=== PATIENT | male | born 1935 ===

== ENCOUNTER 2020-03-26 14:36 | Inpatient (IN) | payer MEDICARE, BC ==
--- NOTE | 2020-03-26 15:19 | PCM.HP.2 ---
H&P History of Present Illness - General Date of Service: 03/26/20 - History of Present Illness Initial Comments - Free Text/Narative: 84 yo male with pmh of COPD,BPH, atrial fibrillation s/p Pacemaker/ICD in 2011, on coumadin who presents with several week history of shortness of breath. Patient reports shortness of breath at rest. He reports increase lower leg swelling bilaterally. He reports laying down makes shortness of breath worse. He reports a 10 LB weight gain. Patient has been following with [facility] who has increased his HCTZ last week and then started lasix three days ago. PAtient reports worsening leg edema even though he was started on lasix. [facility] called and arranged for direct admission. His last echocardiogram was in 2018 which showed an LVEF of 65%. - Related Data Allergies/Adverse Reactions: Allergies Allergy/AdvReac Type Severity Reaction Status Date / Time Penicillins Allergy Rash Verified 03/26/20 15:00 Home Medications: Home Meds Albuterol Sulfate [Proair Respiclick] 2 puff INH Q4H PRN 03/26/20 [History] Budesonide/Formoterol Fumarate [Symbicort 80-4.5 MCG] 2 puff IH BID 03/26/20 [ History] Loratadine 10 mg PO DAILY 03/26/20 [History] Methyl Salicylate/Menth/Camph [Salonpas 3.1%-6.0%-10.0% Patch] 1 patch TOP DAILY PRN 03/26/20 [History] Omeprazole 20 mg PO DAILY 03/26/20 [History] Pravastatin [Pravachol] 40 mg PO DAILY 03/26/20 [History] Pregabalin [Lyrica] 150 mg PO BID 03/26/20 [History] Tamsulosin [Tamsulosin 24 Hr] 0.4 mg PO DAILY 03/26/20 [History] Warfarin [Coumadin] 4 mg PO ASDIRECTED 03/26/20 [History] hydroCHLOROthiazide [Hydrochlorothiazide] 50 mg PO DAILY 03/26/20 [History] oxyCODONE HCl/Acetaminophen [Oxycodone-Acetaminophen 5-325] 1 each PO Q4HR PRN 03/26/20 [History] H&P Review of Systems - Review of Systems: Review Of Systems: Comprehensive ROS is negative, except as noted in HPI. Exam - Exam Exam: See Below - Exam General: Alert, Oriented HEENT: Mucosa Moist & Mears Neck: Supple Lungs: Clear to Auscultation, Normal Respiratory Effort Cardiovascular: Regular Rate, Regular Rhythm GI/Abdominal Exam: Normal Bowel Sounds, Soft, Non-Tender Extremities: Non-Tender, No Pedal Edema Skin: Warm, Dry, Intact - Patient Data Result Diagrams: 03/27/20 05:45 03/27/20 05:45 Problem List Initiated/Reviewed/Updated: Yes Orders Last 24hrs: Active Orders 24 hr Category Date Time Status EKG Documentation Completion [RC] URGENT Care 03/26/20 14:56 Active Telemetry Monitoring [Cardiac Monitoring] [RC] . Care 03/26/20 14:56 Active DIRECTED CXR [Chest 2V] [CR] Stat Exams 03/26/20 14:56 Ordered Echo Comp wo Cont [US] Routine Exams 03/26/20 14:57 Ordered B-TYPE NATRIURETIC PEPTIDE,BNP [CHEM] Routine Lab 03/26/20 15:09 Received CBC WITH AUTO DIFF [HEME] Urgent Lab 03/26/20 15:09 Received COMPREHENSIVE METABOLIC PN,CMP [CHEM] Routine Lab 03/26/20 15:09 Received INR,PT,PROTHROMBIN TIME [COAG] Routine Lab 03/26/20 15:13 Ordered MAGNESIUM [CHEM] Routine Lab 03/26/20 15:09 Received Assessment/Plan Comment:: 84 yo male admitted for new onset CHF exacerbation. We will get CXR, echocardigoram, CMP, BNP and INR. CHF: will start IV lasix pending BMP A.fib: will resume coumadin
[2020-03-26 15:41] LABS: BLOOD UREA NITROGEN,BUN 28 mg/dL (7.0-18.0); CARBON DIOXIDE,CO2 32.3 mmol/L (21.0-32.0); CHLORIDE,CL 102 mmol/L (98-107); GLUCOSE RANDOM 97 mg/dL (74-106); POTASSIUM,K 3.8 mmol/L (3.5-5.1); SODIUM,NA 140 mmol/L (136-148)
--- NOTE | 2020-03-26 15:48 | CR ---
Chest: 2 views of the chest were obtained. Comparison: No prior chest imaging is available. Heart size is normal. Tortuous thoracic aorta is noted. Lung markings are increased. Uncertain if these are chronic or represent acute change without old chest x-ray. Chronic change is the most likely etiology. Slight blunting of the right lateral costophrenic angle is seen which is most likely chronic. Mild disc space narrowing is scattered within the spine. Pacemaker is noted. Impression: 1. Increased lung markings most likely chronic. 2. Other findings as noted above also felt to be chronic. Diagnostic code #2 This report was dictated in MDT
[2020-03-26] MEDS ORDERED: Furosemide 40 MG/4 ML VIAL IVPUSH ONE (17:21)
[2020-03-26] MEDS ORDERED: Albuterol 8 GM Inhaler INH PRN (17:22)
[2020-03-26] MEDS: Magnesium Sulfate/Water 2 GM in Premix Bag 1 BAG IV ONE ×2 (17:34→18:39)
[2020-03-26] MEDS: Tamsulosin 0.4 MG Cap.ER PO SCH (17:41)
--- NOTE | 2020-03-26 18:45 | PCM.PRNOTE ---
- Free Text/Narrative Note: Anes Note I was called to start an IV on this patient. A 22TN as placed in the distal left forarm. Flushes with ease. Time wit patient [phone] Wallace Freeman [employer] REPRESENTATIVE
[2020-03-26] MEDS: Pravastatin 40 MG Tab PO SCH (21:52)
[2020-03-26] MEDS: Pregabalin 75 MG Cap PO SCH (21:52)
[2020-03-27 06:32] LABS: CARBON DIOXIDE,CO2 32.8 mmol/L (21.0-32.0); POTASSIUM,K 3.9 mmol/L (3.5-5.1)
[2020-03-27] MEDS: Omeprazole 20 MG Cap.CR PO SCH (07:33)
[2020-03-27] MEDS ORDERED: Furosemide 40 MG/4 ML VIAL IVPUSH SCH (09:15)
[2020-03-27] MEDS: Tamsulosin 0.4 MG Cap.ER PO SCH (09:30)
[2020-03-27] MEDS: Pregabalin 75 MG Cap PO SCH (09:30)
--- NOTE | 2020-03-27 11:56 | PCM.PN ---
- General Info Date of Service: 03/27/20 - Review of Systems Systems Review Comment:: reports frequent urination with lasix, has not notice any improvement in his breathing yet - Patient Data Vitals - Most Recent: Last Vital Signs Temp 36.3 C 03/27/20 07:18 Pulse 77 03/27/20 07:18 Resp 18 03/27/20 07:18 BP 134/76 03/27/20 07:18 Pulse Ox 91 L 03/27/20 07:18 Weight - Most Recent: 99.11 kg I&O - Last 24 Hours: Intake & Output 03/26/20 03/27/20 03/27/20 22:59 06:59 14:59 Intake Total 350 240 Output Total 2500 Balance -2150 240 Lab Results Last 24 Hours: Laboratory Results - last 24 hr 03/26/20 03/26/20 03/26/20 Range/Units 15:09 15:09 15:09 WBC 5.27 (4.0-11.0) K/uL RBC 4.75 (4.50-5.90) M/uL Hgb 15.4 (13.0-17.0) g/dL Hct 47.4 (38.0-50.0) % MCV 99.8 H (80.0-98.0) fL MCH 32.4 H (27.0-32.0) pg MCHC 32.5 (31.0-37.0) g/dL RDW Std Deviation 53.0 (28.0-62.0) fl RDW Coeff of Humberto 15 (11.0-15.0) % Plt Count 144 L (150-400) K/uL MPV 9.80 (7.40-12.00) fL Neut % (Auto) 62.3 (48.0-80.0) % Lymph % (Auto) 27.1 (16.0-40.0) % [place] % (Auto) 7.2 (0.0-15.0) % Eos % (Auto) 3.2 (0.0-7.0) % Baso % (Auto) 0.2 (0.0-1.5) % Neut # (Auto) 3.3 (1.4-5.7) K/uL Lymph # (Auto) 1.4 (0.6-2.4) K/uL [place] # (Auto) 0.4 (0.0-0.8) K/uL Eos # (Auto) 0.2 (0.0-0.7) K/uL Baso # (Auto) 0.0 (0.0-0.1) K/uL Nucleated RBC % 0.0 /100WBC Nucleated RBCs # 0 K/uL INR Sodium 140 (136-148) mmol/L Potassium 3.8 (3.5-5.1) mmol/L Chloride 102 (98-107) mmol/L Carbon Dioxide 32.3 H (21.0-32.0) mmol/L BUN 28 H (7.0-18.0) mg/dL Creatinine 1.8 H (0.8-1.3) mg/dL Est Cr Clr Drug Dosing TNP Estimated GFR (MDRD) 36.2 ml/min Glucose 97 (74-106) mg/dL Calcium 8.5 (8.5-10.1) mg/dL Magnesium 1.7 L (1.8-2.4) mg/dL Total Bilirubin 0.6 (0.2-1.0) mg/dL AST 19 (15-37) IU/L ALT 14 (14-63) IU/L Alkaline Phosphatase 53 (46-116) U/L B-Natriuretic Peptide 142 H (<100) PG/ML Total Protein 7.2 (6.4-8.2) g/dL Albumin 3.8 (3.4-5.0) g/dL Globulin 3.4 (2.6-4.0) g/dL Albumin/Globulin Ratio 1.1 (0.9-1.6) Urine Color Urine Appearance Urine pH (5.0-8.0) Ur Specific [place] (1.001-1.035) Urine Protein (NEGATIVE) mg/dL Urine Glucose (UA) (NEGATIVE) mg/dL Urine Ketones (NEGATIVE) mg/dL Urine Occult Blood (NEGATIVE) Urine Nitrite (NEGATIVE) Urine Bilirubin (NEGATIVE) Urine Urobilinogen (<2.0) EU/dL Ur Leukocyte Esterase (NEGATIVE) 03/26/20 03/26/20 03/27/20 Range/Units 15:09 18:45 05:45 WBC 5.05 (4.0-11.0) K/uL RBC 4.73 (4.50-5.90) M/uL Hgb 15.4 (13.0-17.0) g/dL Hct 46.6 (38.0-50.0) % MCV 98.5 H (80.0-98.0) fL MCH 32.6 H (27.0-32.0) pg MCHC 33.0 (31.0-37.0) g/dL RDW Std Deviation 51.9 (28.0-62.0) fl RDW Coeff of Humberto 14 (11.0-15.0) % Plt Count 136 L (150-400) K/uL MPV 9.60 (7.40-12.00) fL Neut % (Auto) 60.3 (48.0-80.0) % Lymph % (Auto) 24.8 (16.0-40.0) % [place] % (Auto) 11.1 (0.0-15.0) % Eos % (Auto) 3.6 (0.0-7.0) % Baso % (Auto) 0.2 (0.0-1.5) % Neut # (Auto) 3.1 (1.4-5.7) K/uL Lymph # (Auto) 1.3 (0.6-2.4) K/uL [place] # (Auto) 0.6 (0.0-0.8) K/uL Eos # (Auto) 0.2 (0.0-0.7) K/uL Baso # (Auto) 0.0 (0.0-0.1) K/uL Nucleated RBC % 0.0 /100WBC Nucleated RBCs # 0 K/uL INR 2.29 Sodium (136-148) mmol/L Potassium (3.5-5.1) mmol/L Chloride (98-107) mmol/L Carbon Dioxide (21.0-32.0) mmol/L BUN (7.0-18.0) mg/dL Creatinine (0.8-1.3) mg/dL Est Cr Clr Drug Dosing Estimated GFR (MDRD) ml/min Glucose (74-106) mg/dL Calcium (8.5-10.1) mg/dL Magnesium (1.8-2.4) mg/dL Total Bilirubin (0.2-1.0) mg/dL AST (15-37) IU/L ALT (14-63) IU/L Alkaline Phosphatase (46-116) U/L B-Natriuretic Peptide (<100) PG/ML Total Protein (6.4-8.2) g/dL Albumin (3.4-5.0) g/dL Globulin (2.6-4.0) g/dL Albumin/Globulin Ratio (0.9-1.6) Urine Color YELLOW Urine Appearance CLEAR Urine pH 7.0 (5.0-8.0) Ur Specific [place] 1.015 (1.001-1.035) Urine Protein NEGATIVE (NEGATIVE) mg/dL Urine Glucose (UA) NEGATIVE (NEGATIVE) mg/dL Urine Ketones NEGATIVE (NEGATIVE) mg/dL Urine Occult Blood NEGATIVE (NEGATIVE) Urine Nitrite NEGATIVE (NEGATIVE) Urine Bilirubin NEGATIVE (NEGATIVE) Urine Urobilinogen 0.2 (<2.0) EU/dL Ur Leukocyte Esterase NEGATIVE (NEGATIVE) 03/27/20 03/27/20 Range/Units 05:45 05:45 WBC (4.0-11.0) K/uL RBC (4.50-5.90) M/uL Hgb (13.0-17.0) g/dL Hct (38.0-50.0) % MCV (80.0-98.0) fL MCH (27.0-32.0) pg MCHC (31.0-37.0) g/dL RDW Std Deviation (28.0-62.0) fl RDW Coeff of Humberto (11.0-15.0) % Plt Count (150-400) K/uL MPV (7.40-12.00) fL Neut % (Auto) (48.0-80.0) % Lymph % (Auto) (16.0-40.0) % [place] % (Auto) (0.0-15.0) % Eos % (Auto) (0.0-7.0) % Baso % (Auto) (0.0-1.5) % Neut # (Auto) (1.4-5.7) K/uL Lymph # (Auto) (0.6-2.4) K/uL [place] # (Auto) (0.0-0.8) K/uL Eos # (Auto) (0.0-0.7) K/uL Baso # (Auto) (0.0-0.1) K/uL Nucleated RBC % /100WBC Nucleated RBCs # K/uL INR 1.97 Sodium 140 (136-148) mmol/L Potassium 3.9 (3.5-5.1) mmol/L Chloride 102 (98-107) mmol/L Carbon Dioxide 32.8 H (21.0-32.0) mmol/L BUN 26 H (7.0-18.0) mg/dL Creatinine 1.8 H (0.8-1.3) mg/dL Est Cr Clr Drug Dosing 34.13 Estimated GFR (MDRD) 36.2 ml/min Glucose 105 (74-106) mg/dL Calcium 9.0 (8.5-10.1) mg/dL Magnesium (1.8-2.4) mg/dL Total Bilirubin (0.2-1.0) mg/dL AST (15-37) IU/L ALT (14-63) IU/L Alkaline Phosphatase (46-116) U/L B-Natriuretic Peptide (<100) PG/ML Total Protein (6.4-8.2) g/dL Albumin (3.4-5.0) g/dL Globulin (2.6-4.0) g/dL Albumin/Globulin Ratio (0.9-1.6) Urine Color Urine Appearance Urine pH (5.0-8.0) Ur Specific [place] (1.001-1.035) Urine Protein (NEGATIVE) mg/dL Urine Glucose (UA) (NEGATIVE) mg/dL Urine Ketones (NEGATIVE) mg/dL Urine Occult Blood (NEGATIVE) Urine Nitrite (NEGATIVE) Urine Bilirubin (NEGATIVE) Urine Urobilinogen (<2.0) EU/dL Ur Leukocyte Esterase (NEGATIVE) Med Orders - Current: Current Medications Albuterol (Ventolin Hfa) 0 gm INH Q4H PRN PRN Reason: Wheezing Furosemide (Lasix) 40 mg IVPUSH BID [facility] Last Admin: 03/27/20 09:30 Dose: 40 mg Omeprazole (Omeprazole) 20 mg PO ACBREAKFAST [facility] Last Admin: 03/27/20 07:33 Dose: 20 mg Pravastatin Sodium (Pravachol) 40 mg PO BEDTIME [facility] Last Admin: 03/26/20 21:52 Dose: 40 mg Pregabalin (Lyrica) 150 mg PO BID [facility] Last Admin: 03/27/20 09:30 Dose: 150 mg Tamsulosin HCl (Flomax) 0.4 mg PO DAILY [facility] Last Admin: 03/27/20 09:30 Dose: 0.4 mg Warfarin Sodium (Coumadin Ask) 0 each PO Q24H [facility] Last Admin: 03/27/20 08:40 Dose: Not Given Discontinued Medications Furosemide (Lasix) 40 mg IVPUSH NOW ONE Stop: 03/26/20 17:22 Last Admin: 03/26/20 18:37 Dose: 40 mg Magnesium Sulfate 2 gm/ Premix 50 mls @ 50 mls/hr IV ONETIME ONE Stop: 03/26/20 17:56 Last Admin: 03/26/20 18:39 Dose: Not Given - Exam General: Alert, Oriented Lungs: Clear to Auscultation, Normal Respiratory Effort Cardiovascular: Regular Rate, Regular Rhythm GI/Abdominal Exam: Soft, Non-Tender, No Distention Extremities: Non-Tender, Pedal Edema (+1) Skin: Warm, Dry, Intact Neurological: No New Focal Deficit Sepsis Event Note - Evaluation Sepsis Screening Result: No Definite Risk - Focused Exam Vital Signs: Vital Signs Temp Pulse Resp BP Pulse Ox 03/27/20 07:18 36.3 C 77 18 134/76 91 L 03/27/20 04:00 36.0 C L 75 16 128/66 92 L 03/27/20 00:00 36.2 C 75 17 128/67 89 L Date Exam was Performed: 03/27/20 Time Exam was Performed: 11:54 - Problem List Review Problem List Initiated/Reviewed/Updated: Yes - My Orders Last 24 Hours: My Active Orders 03/26/20 14:00 Warfarin Dosing [Coumadin Ask] 0 each PO Q24H 03/26/20 14:56 Telemetry Monitoring [Cardiac Monitoring] [RC] Q8H 03/26/20 14:57 Echo Comp wo Cont [US] Routine 03/26/20 15:22 Patient Status [ADT] Routine Oxygen Therapy [RC] PRN Up ad Shania [RC] ASDIRECTED VTE/DVT Education [RC] DAILY Vital Signs [RC] Q4H Resuscitation Status Routine 03/26/20 15:23 Antiembolic Devices [RC] PER UNIT ROUTINE Sequential Compression Device [OM.PC] Per Unit Routine 03/26/20 17:22 Albuterol [Ventolin HFA] 0 gm INH Q4H PRN 03/26/20 21:00 Pravastatin [Pravachol] 40 mg PO BEDTIME Pregabalin [Lyrica] 150 mg PO BID 03/27/20 07:30 Omeprazole 20 mg PO ACBREAKFAST 03/27/20 09:15 Furosemide [Lasix] 40 mg IVPUSH BID 03/28/20 05:11 BASIC METABOLIC PANEL,BMP [CHEM] AM CBC WITH AUTO DIFF [HEME] AM INR,PT,PROTHROMBIN TIME [COAG] AM 03/29/20 05:11 BASIC METABOLIC PANEL,BMP [CHEM] AM CBC WITH AUTO DIFF [HEME] AM INR,PT,PROTHROMBIN TIME [COAG] AM - Plan Plan:: 84 yo male admitted for new onset CHF exacerbation. CHF: continue IV lasix, Echocardigoram pending A.fib: on coumadin
[2020-03-27] MEDS ORDERED: Warfarin 2 MG Tab PO ONE (14:00)
[2020-03-27] MEDS: Furosemide 40 MG/4 ML VIAL IVPUSH SCH (14:46)
--- NOTE | 2020-03-27 15:46 | PCM.SN.2 ---
- Free Text/Narrative Note: #[id number]
[2020-03-27] MEDS: Pravastatin 40 MG Tab PO SCH (20:03)
[2020-03-28] MEDS: Omeprazole 20 MG Cap.CR PO SCH (06:36)
[2020-03-28 06:45] LABS: CARBON DIOXIDE,CO2 33.2 mmol/L (21.0-32.0); POTASSIUM,K 3.6 mmol/L (3.5-5.1)
[2020-03-28] MEDS: Furosemide 40 MG/4 ML VIAL IVPUSH SCH ×2 (07:54→13:50)
[2020-03-28] MEDS: Tamsulosin 0.4 MG Cap.ER PO SCH (08:00)
--- NOTE | 2020-03-28 11:06 | PCM.PN ---
- General Info Date of Service: 03/28/20 - Review of Systems Systems Review Comment:: patient reports improvement in breathing - Patient Data Vitals - Most Recent: Last Vital Signs Temp 36.5 C 03/28/20 07:26 Pulse 77 03/28/20 07:26 Resp 14 03/28/20 07:26 BP 121/70 03/28/20 07:26 Pulse Ox 90 L 03/28/20 07:26 Weight - Most Recent: 98.293 kg I&O - Last 24 Hours: Intake & Output 03/27/20 03/28/20 03/28/20 22:59 06:59 14:59 Intake Total 640 500 Output Total 1445 1025 Balance -805 -525 Lab Results Last 24 Hours: Laboratory Results - last 24 hr 03/28/20 03/28/20 03/28/20 Range/Units 05:55 05:55 05:55 WBC 5.92 (4.0-11.0) K/uL RBC 5.01 (4.50-5.90) M/uL Hgb 16.3 (13.0-17.0) g/dL Hct 49.1 (38.0-50.0) % MCV 98.0 (80.0-98.0) fL MCH 32.5 H (27.0-32.0) pg MCHC 33.2 (31.0-37.0) g/dL RDW Std Deviation 50.0 (28.0-62.0) fl RDW Coeff of Humberto 14 (11.0-15.0) % Plt Count 153 (150-400) K/uL MPV 10.00 (7.40-12.00) fL Neut % (Auto) 60.3 (48.0-80.0) % Lymph % (Auto) 25.8 (16.0-40.0) % [place] % (Auto) 10.3 (0.0-15.0) % Eos % (Auto) 3.4 (0.0-7.0) % Baso % (Auto) 0.2 (0.0-1.5) % Neut # (Auto) 3.6 (1.4-5.7) K/uL Lymph # (Auto) 1.5 (0.6-2.4) K/uL [place] # (Auto) 0.6 (0.0-0.8) K/uL Eos # (Auto) 0.2 (0.0-0.7) K/uL Baso # (Auto) 0.0 (0.0-0.1) K/uL Nucleated RBC % 0.0 /100WBC Nucleated RBCs # 0 K/uL INR 1.65 Sodium 141 (136-148) mmol/L Potassium 3.6 (3.5-5.1) mmol/L Chloride 99 (98-107) mmol/L Carbon Dioxide 33.2 H (21.0-32.0) mmol/L BUN 36 H (7.0-18.0) mg/dL Creatinine 2.2 H (0.8-1.3) mg/dL Est Cr Clr Drug Dosing 27.92 mL/min Estimated GFR (MDRD) 28.7 ml/min Glucose 107 H (74-106) mg/dL Calcium 8.9 (8.5-10.1) mg/dL Med Orders - Current: Current Medications Albuterol (Ventolin Hfa) 0 gm INH Q4H PRN PRN Reason: Wheezing Furosemide (Lasix) 40 mg IVPUSH BIDDIURETIC [facility] Last Admin: 03/28/20 07:54 Dose: 40 mg Omeprazole (Omeprazole) 20 mg PO ACBREAKFAST [facility] Last Admin: 03/28/20 06:36 Dose: 20 mg Pravastatin Sodium (Pravachol) 40 mg PO BEDTIME [facility] Last Admin: 03/27/20 20:03 Dose: 40 mg Pregabalin (Lyrica) 150 mg PO BID [facility] Last Admin: 03/27/20 09:30 Dose: 150 mg Tamsulosin HCl (Flomax) 0.4 mg PO DAILY [facility] Last Admin: 03/28/20 08:00 Dose: 0.4 mg Warfarin Sodium (Coumadin Ask) 0 each PO Q24H [facility] Last Admin: 03/27/20 14:31 Dose: Not Given Discontinued Medications Furosemide (Lasix) 40 mg IVPUSH NOW ONE Stop: 03/26/20 17:22 Last Admin: 03/26/20 18:37 Dose: 40 mg Furosemide (Lasix) 40 mg IVPUSH BID [facility] Last Admin: 03/27/20 09:30 Dose: 40 mg Magnesium Sulfate 2 gm/ Premix 50 mls @ 50 mls/hr IV ONETIME ONE Stop: 03/26/20 17:56 Last Admin: 03/26/20 18:39 Dose: Not Given Warfarin Sodium (Coumadin) 4 mg PO ONETIME ONE Stop: 03/27/20 14:01 Last Admin: 03/27/20 14:00 Dose: 4 mg - Exam General: Alert, Oriented Neck: Supple Lungs: Clear to Auscultation, Normal Respiratory Effort Cardiovascular: Regular Rate, Regular Rhythm GI/Abdominal Exam: Normal Bowel Sounds, Soft, Non-Tender, No Distention Extremities: Non-Tender, No Pedal Edema Skin: Warm, Dry, Intact Neurological: No New Focal Deficit Sepsis Event Note - Evaluation Sepsis Screening Result: No Definite Risk - Focused Exam Vital Signs: Vital Signs Temp Pulse Resp BP Pulse Ox 03/28/20 07:26 36.5 C 77 14 121/70 90 L 03/28/20 03:15 36.6 C 78 17 136/87 90 L 03/27/20 23:15 36.6 C 74 16 147/79 H 92 L Date Exam was Performed: 03/28/20 Time Exam was Performed: 11:02 - Problem List Review Problem List Initiated/Reviewed/Updated: Yes - My Orders Last 24 Hours: My Active Orders 03/27/20 14:00 Furosemide [Lasix] 40 mg IVPUSH BIDDIURETIC 03/29/20 05:11 BASIC METABOLIC PANEL,BMP [CHEM] AM CBC WITH AUTO DIFF [HEME] AM INR,PT,PROTHROMBIN TIME [COAG] AM - Plan Plan:: 84 yo male admitted for new onset CHF exacerbation. We will get CXR, echocardigoram, CMP, BNP and INR. CHF: continue IV lasix holding lyrica due to tremors A.fib: on coumadin coumadin anticipate discharge home tomorrow
--- NOTE | 2020-03-28 11:38 | CONS ---
DATE OF CONSULTATION: 03/27/2020 DATE OF : 1935 PRIMARY CARE PHYSICIAN: Niko Stoll MD REASON FOR CONSULTATION: Heart failure. HISTORY OF PRESENT ILLNESS: This is an 84-year-old male with history of permanent atrial fibrillation, status post AV node ablation, single-chamber pacemaker; hypertension; hyperlipidemia; former smoker; history of DVT; COPD; sleep apnea, on CPAP machine. He was admitted to the hospital from primary care office for decompensated heart failure. He started having shortness of breath over the past 2 months, he usually physically is very active for his age, but over the past 2 months, he feels he had become more short of breath with small activities. He stated that if he walks a block, he will get short of breath. He cannot really do much of anything. He also noticed his legs got more swelling over the past 2 weeks and gained 20 pounds in past 3 months. Denied chest pain, heaviness, tightness, or heart racing. No orthopnea, no PND. He saw the primary care doctor who increased his hydrochlorothiazide from 50 to 50 twice a day. However, when he followed up 1 week later on, he did not feel any different and Lasix 40 mg was added, and 3 days after he called his primary care doctor, he did not feel much of difference, that was the reason he was here in the hospital. Since he came in, he received 2 doses of the Lasix 40 mg IV, and he has made the urine output of 2 L. He has lost 2 pounds. His leg swelling got better, however, his breathing is still short. PAST MEDICAL HISTORY: Including permanent atrial fibrillation, on anticoagulation, status post single- chamber pacemaker; history of DVT; COPD; hyperlipidemia; hypertension; history of PE. PAST SURGICAL HISTORY: AV node ablation in 2011, single-chamber pacemaker in 08/2012, hip surgery, and knee surgery. HOME MEDICATIONS: Including hydrochlorothiazide 50 mg twice a day, loratadine 10 mg once a day, Prilosec 20 mg once a day, oxycodone, pravastatin 40 mg once a day, Flomax 0.4 mg once a day, Coumadin, Lasix 40 mg once a day. HOSPITAL MEDICATION: Including the Lasix 40 mg IV twice a day. REVIEW OF SYSTEMS: Leg swelling positive, shortness of breath positive, otherwise been negative for review of systems, 10-point. FAMILY HISTORY: Father had a history of a heart attack. Mother had a history of the heart failure. SOCIAL HISTORY: Former smoker, stopped 2019. Occasional drinker, no drug use. ALLERGIES: To penicillin, causing rash. PHYSICAL EXAMINATION: VITAL SIGNS: Initial blood pressure was 142/84, current blood pressure is 112/68; respirations 18, current respirations 16; the initial temperature 97.4, the current temperature 97.6; the initial weight is 226, currently 218; O2 saturation is 94 on room air initial and currently 90 on room air. HEENT: JVD mildly positive. HEART: Totally irregular. LUNGS: Crackle. Decreased breath sound bilaterally. ABDOMEN: Soft, nontender. Bowel sounds present. No hepatosplenomegaly. EXTREMITIES: Legs, 1+ edema, but improving. SKIN: Pacemaker site on the left chest wall. INVESTIGATION: CBC showed WBC 5, hematocrit of 46, hemoglobin of 15, platelets 136,000. INR 1.9. Sodium 140; potassium 3.9; chloride 102; bicarb 32; BUN 26; creatinine 1.8, his baseline around 1.4 to 1.5. Magnesium 1.7. Urinalysis is negative. ASSESSMENT AND PLAN: This is an 84-year-old male with history of hypertension; hyperlipidemia; chronic obstructive pulmonary disease; former smoker; permanent atrial fibrillation, status post single-chamber pacemaker, on anticoagulation, for decompensated heart failure, being treated with IV diuretics. Echocardiogram at this time is not a very good echocardiogram. We need to repeat it with contrast, and I did not appreciate the significant valvular abnormalities. Pacemaker check is functioning normal, the battery is 1 year out, he is ventricular paced 98% of the time. No episodes. Fluid restriction of 1.8 L a day, continue Lasix 40 mg IV twice a day until Sunday, he will need the Lexiscan for ischemic workup as well as repeat an echo with contrast. He already connected with a device clinic for pacemaker remote check. He will probably need a PFT. JAVED / STEPHY /[id number]
[2020-03-28] MEDS: Pravastatin 40 MG Tab PO SCH (20:05)
[2020-03-29] MEDS: Omeprazole 20 MG Cap.CR PO SCH (06:31)
[2020-03-29 06:42] LABS: CARBON DIOXIDE,CO2 33.8 mmol/L (21.0-32.0); POTASSIUM,K 3.4 mmol/L (3.5-5.1)
[2020-03-29] MEDS: Tamsulosin 0.4 MG Cap.ER PO SCH (08:12)
[2020-03-29] MEDS: Furosemide 40 MG/4 ML VIAL IVPUSH SCH (08:12)
--- NOTE | 2020-03-29 11:19 | PCM.DCSUM1 ---
Discharge Summary - Hospital Course Brief History: 84 yo male with pmh of COPD,BPH, atrial fibrillation s/p Pacemaker/ICD in 2011, on coumadin who presents with several week history of shortness of breath. Patient reports shortness of breath at rest. He reports increase lower leg swelling bilaterally. He reports laying down makes shortness of breath worse. He reports a 10 LB weight gain. Patient has been following with [facility] who has increased his HCTZ last week and then started lasix three days ago. PAtient reports worsening leg edema even though he was started on lasix. [facility] called and arranged for direct admission. His last echocardiogram was in 2018 which showed an LVEF of 65%. Diagnosis: Stroke: No - Discharge Data Discharge Date: 03/29/20 Discharge Disposition: Home, Self-Care 01 Condition: Good - Referral to Home Health Primary Care Physician: Niko Stoll MD - Patient Summary/Data Hospital Course: Admitting Diagnoses: Dyspnea acute CHF Discharge diagnoses: Acute CHF- improved Other PMH: COPD BPH Afib Pacemaker/ICD Anticoagulation Don was admitted with acute CHF exacerbation. ECHO obtained, but adequate pictures and evaluation were difficult. He was treated with Lasix 40 mg IV BID with good, steady diuresis over the weekend. Today he is down another 4 lbs in 24 hours. BUN 48 and Cr 2.2 today, which is nearly double since admission. He has improved and is ready for discharge home today. he will Restart home medications. Continue HCTZ 25 mg for now. Continue Lasix at 40 mg daily. Lower leg edema is significantly improved. Family was concerned about tremors and Lyrica. We will decrease to 75 mg BID for family and PCP to monitor response. Family is considering stopping, I did speak with daughter about needing to slowly taper this type of medication and she was understanding. he is to monitor liquids at home, drink only 2 L daily. If he starts gaining weight, he needs to contact PCP or Dr Phan. He should weigh himself daily. He will have follow uup for further cardiac evaluation with Dr Phan to likely include lexiscan and ECHO with contrast in [place]. PCP should also consider PFT to evaluate pulmonary function as well. He is to return to the ED or clinic if concerns should arise. - Patient Instructions Diet: Heart Healthy Diet, Low Sodium Activity: As Tolerated Showering/Bathing: May Shower Notify Provider of: Fever, Increased Pain, Swelling and Redness, Drainage, Nausea and/or Vomiting Other/Special Instructions: Monitor weight at home. If there is an increase in weight by 3-5 lbs in 2-[address] Bui or Dr Deal. Dr. Deal to schedule ECHO and further cardiac work up. You will be notified of time/date - Discharge Plan *PRESCRIPTION DRUG MONITORING PROGRAM REVIEWED*: Not Applicable *COPY OF PRESCRIPTION DRUG MONITORING REPORT IN PATIENT FILIPE: Not Applicable Prescriptions/Med Rec: Pregabalin [Lyrica] 75 mg PO BID #30 cap Home Medications: Home Meds Albuterol Sulfate [Proair Respiclick] 2 puff INH Q4H PRN 03/26/20 [History] Budesonide/Formoterol Fumarate [Symbicort 80-4.5 MCG] 2 puff IH BID 03/26/20 [ History] Loratadine 10 mg PO DAILY 03/26/20 [History] Methyl Salicylate/Menth/Camph [Salonpas 3.1%-6.0%-10.0% Patch] 1 patch TOP DAILY PRN 03/26/20 [History] Omeprazole 20 mg PO DAILY 03/26/20 [History] Pravastatin [Pravachol] 40 mg PO DAILY 03/26/20 [History] Tamsulosin [Flomax] 0.4 mg PO DAILY 03/26/20 [History] Warfarin [Coumadin] 4 mg PO ASDIRECTED 03/26/20 [History] oxyCODONE HCl/Acetaminophen [Oxycodone-Acetaminophen 5-325] 1 each PO Q4HR PRN 03/26/20 [History] Furosemide 40 mg PO DAILY 03/27/20 [History] Pregabalin [Lyrica] 75 mg PO BID #30 cap 03/29/20 [Rx] hydroCHLOROthiazide [Hydrochlorothiazide] 25 mg PO DAILY #0 03/29/20 [Rx] Oxygen Therapy Mode: Room Air Patient Handouts: Heart Failure, Self Care, Bbma-de-Ujyk, Pregabalin capsules, Living With Heart Failure Referrals: Katey hPan MD [Physician] - 04/29/20 3:00 am (Arrive 15 minutes early with photo ID, insurance card, and a mask if you have one. He will be setting up the ECHO and other testing that needs to be done.) Niko Stoll MD [Primary Care Provider] - 04/05/20 10:15 am (Arrive 15 minutes early with a photo ID, insurance card, discharge paperwork, and a mask if you have one. ) Torsten Decker MD [Physician] - (Call to make an appointment at your earliest convinence. The one for 03/29 was cancelled) - Discharge Summary/Plan Comment DC Time >30 min.: No - Patient Data Vitals - Most Recent: Last Vital Signs Temp 97.4 F 03/29/20 07:05 Pulse 75 03/29/20 07:05 Resp 16 03/29/20 07:05 BP 118/69 03/29/20 07:05 Pulse Ox 92 L 03/29/20 07:05 Weight - Most Recent: 96.298 kg I&O - Last 24 hours: Intake & Output 03/28/20 03/29/20 03/29/20 22:59 06:59 14:59 Intake Total 900 516 Output Total 9346 492 Balance -9115 124 Lab Results - Last 24 hrs: Laboratory Results - last 24 hr 03/29/20 03/29/20 03/29/20 Range/Units 05:50 05:50 05:50 WBC 6.44 (4.0-11.0) K/uL RBC 5.23 (4.50-5.90) M/uL Hgb 16.8 (13.0-17.0) g/dL Hct 50.7 H (38.0-50.0) % MCV 96.9 (80.0-98.0) fL MCH 32.1 H (27.0-32.0) pg MCHC 33.1 (31.0-37.0) g/dL RDW Std Deviation 49.3 (28.0-62.0) fl RDW Coeff of Humberto 14 (11.0-15.0) % Plt Count 154 (150-400) K/uL MPV 10.20 (7.40-12.00) fL Neut % (Auto) 61.0 (48.0-80.0) % Lymph % (Auto) 25.3 (16.0-40.0) % [place] % (Auto) 11.0 (0.0-15.0) % Eos % (Auto) 2.5 (0.0-7.0) % Baso % (Auto) 0.2 (0.0-1.5) % Neut # (Auto) 3.9 (1.4-5.7) K/uL Lymph # (Auto) 1.6 (0.6-2.4) K/uL [place] # (Auto) 0.7 (0.0-0.8) K/uL Eos # (Auto) 0.2 (0.0-0.7) K/uL Baso # (Auto) 0.0 (0.0-0.1) K/uL Nucleated RBC % 0.0 /100WBC Nucleated RBCs # 0 K/uL INR 1.76 Sodium 140 (136-148) mmol/L Potassium 3.4 L (3.5-5.1) mmol/L Chloride 98 (98-107) mmol/L Carbon Dioxide 33.8 H (21.0-32.0) mmol/L BUN 48 H (7.0-18.0) mg/dL Creatinine 2.2 H (0.8-1.3) mg/dL Est Cr Clr Drug Dosing 27.92 mL/min Estimated GFR (MDRD) 28.7 ml/min Glucose 107 H (74-106) mg/dL Calcium 9.2 (8.5-10.1) mg/dL Med Orders - Current: Current Medications Albuterol (Ventolin Hfa) 0 gm INH Q4H PRN PRN Reason: Wheezing Omeprazole (Omeprazole) 20 mg PO ACBREAKFAST [facility] Last Admin: 03/29/20 06:31 Dose: 20 mg Pravastatin Sodium (Pravachol) 40 mg PO BEDTIME [facility] Last Admin: 03/28/20 20:05 Dose: 40 mg Pregabalin (Lyrica) 150 mg PO BID [facility] Last Admin: 03/27/20 09:30 Dose: 150 mg Tamsulosin HCl (Flomax) 0.4 mg PO DAILY [facility] Last Admin: 03/29/20 08:12 Dose: 0.4 mg Warfarin Sodium (Coumadin Ask) 0 each PO Q24H [facility] Last Admin: 03/28/20 13:50 Dose: Not Given Discontinued Medications Furosemide (Lasix) 40 mg IVPUSH NOW ONE Stop: 03/26/20 17:22 Last Admin: 03/26/20 18:37 Dose: 40 mg Furosemide (Lasix) 40 mg IVPUSH BID [facility] Last Admin: 03/27/20 09:30 Dose: 40 mg Furosemide (Lasix) 40 mg IVPUSH BIDDIURETIC ELAINA Last Admin: 03/29/20 08:12 Dose: 40 mg Magnesium Sulfate 2 gm/ Premix 50 mls @ 50 mls/hr IV ONETIME ONE Stop: 03/26/20 17:56 Last Admin: 03/26/20 18:39 Dose: Not Given Warfarin Sodium (Coumadin) 4 mg PO ONETIME ONE Stop: 03/27/20 14:01 Last Admin: 03/27/20 14:00 Dose: 4 mg Warfarin Sodium 5 mg/ Warfarin (Sodium 1 mg) 6 mg PO ONETIME ONE Stop: 03/28/20 14:01 Last Admin: 03/28/20 13:50 Dose: 6 mg - Exam General: Reports: Alert, Oriented, Cooperative, No Acute Distress Lungs: Reports: Clear to Auscultation, Normal Respiratory Effort Cardiovascular: Reports: Regular Rate, Irregular Rhythm GI/Abdominal Exam: Normal Bowel Sounds, Soft, Non-Tender Extremities: Normal Inspection, Normal Range of Motion, Pedal Edema (+1 edema BLE) Neurological: Reports: No New Focal Deficit Psy/Mental Status: Reports: Alert, Normal Affect, Normal Mood
--- NOTE | 2020-03-30 12:49 | ECHO ---
EXAM DATE: 03/26/20 PATIENT'S AGE: 84 The ECHO report has been scanned into [employer] and can be seen in this patient' s EMR (Electronic Medical Record) under the REPORTS section. The report has also been scanned into PACS. NATALIE
== END 2020-03-29 13:00 | disposition home or self-care (01) | DRG 293 ==
LOC: MW.MS 14:36
PROVIDERS: ADMIT Internal Medicine; ATTEND Internal Medicine
DX: I11.0 Hypertensive heart disease with heart failure (principal); I50.9 Heart failure, unspecified; I48.91 Unspecified atrial fibrillation; N40.0 Benign prostatic hyperplasia without lower urinary tract symptoms; E78.5 Hyperlipidemia, unspecified; J44.9 Chronic obstructive pulmonary disease, unspecified; Z95.0 Presence of cardiac pacemaker; Z79.01 Long term (current) use of anticoagulants; Z88.0 Allergy status to penicillin; Z79.899 Other long term (current) drug therapy
CPT/HCPCS: 36410; 36415; 71046; 71046-26; 80048; 80053; 81003; 83735; 83880; 85025; 85610; 93005; 93306; 94660; A9270-GY; J1940; J3475